=== PATIENT | female | born 2005 | race Caucasian/White ===

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

== ENCOUNTER 2025-06-25 18:16 | Emergency (ER) | payer OTHER, SELFPAY ==
[2025-06-25 18:27] VITALS: BP 138/87; PULSE 90; RESP 18; TEMP 36.8; O2SAT 100
--- NOTE | 2025-06-25 18:42 | ED_ITS ---
HPI - URI/Sore Throat General Chief Complaint: Upper Respiratory Infection Stated Complaint: SINUS/CHEST CONGESTION/COUGH Time Seen by Provider: 06/25/25 18:42 Source: patient Mode of arrival: ambulatory Limitations: no limitations History of Present Illness HPI Narrative: 20-year-old female complains with complaint of sinus congestion, pressure, pain for 3 weeks. Did a telehealth visit 6 days ago. Has taken 6 days of amoxicillin without relief of symptoms. Reports increase in postnasal drainage, green drainage from nose, right ear pain. Dry cough. No chest pain or shortness of breath. Afebrile. All systems reviewed and negative except as noted above. Related Data Home Medications ?Medication ?Instructions ?Recorded ?Confirmed ?Last Taken ?Type amoxicillin 875 mg tablet mg 06/25/25 Unknown History benzonatate 100 mg capsule mg PO 06/25/25 Unknown History sertraline 25 mg tablet mg 06/25/25 Unknown History Allergies Allergy/AdvReac Type Severity Reaction Status Date / Time No Known Allergies Allergy Verified 06/25/25 18:32 [facility] Surgical History Surgical History (Updated 10/01/23 @ 19:52 by Yamile Jaffe NP) History of tonsillectomy and adenoidectomy Social History Social History (Updated 10/01/23 @ 19:52 by Yamile Jaffe NP) Smoking status: Never smoker Alcohol intake: never Substance use: never Living arrangements: with family Gender identity (if verbalized by the patient): Female Comments At time of signature, agree with nursing past medical, surgical, social and family history. There is no relevant family history pertinent to the presenting complaint. Exam Narrative: GENERAL: This is a well-nourished, well-developed patient, in no apparent distress. HEAD: normocephalic, atraumatic. EYES: PERRL. Sclera clear/white. Vision is grossly intact. EARS: External ears normal, auditory canals clear and without drainage, fluid to right TM slightly bulging without erythema. Left TM is normal. No perforation bilaterally. Hearing grossly intact. NOSE: External nose normal with purulent nasal drainage, erythema and swelling to bilateral nares THROAT: Mucous membranes moist, erythema with postnasal drainage NECK: Neck supple, non-tender without lymphadenopathy, masses or thyromegaly. CARDIOVASCULAR: Regular rate and rhythm without murmurs, gallops, or rubs. RESPIRATORY: Clear to auscultation. Breath sounds equal bilaterally. No wheezes, rales, or rhonchi. SKIN: warm, Dry, intact with no suspicious lesions or rash, good texture and turgor. NEURO: awake, alert, and oriented to person, place and time. There were no obvious focal neurologic abnormalities. EXTREMITIES: No joint tenderness, effusion, or edema noted. Course Course Level of Care: Express Care Visit Vital Signs Vital signs: Vital Signs Temperature 36.8 C 06/25/25 18: Pulse Rate 90 06/25/25 18:27 Respiratory Rate 18 06/25/25 18: Blood Pressure 138/87 06/25/25 18: Pulse Oximetry 100 06/25/25 18: Temperature 36.8 C 06/25/25 18: Pulse Rate 90 06/25/25 18:27 Respiratory Rate 18 06/25/25 18:27 Blood Pressure 138/87 06/25/25 18:27 Pulse Oximetry 100 06/25/25 18:27 Reviewed MDM - URI/Sore Throat MDM Narrative Medical decision making narrative: Will stop amoxicillin. Changing patient's antibiotic to doxycycline. Patient is well-appearing, nontoxic. Lungs clear to auscultation. Patient agrees with plan of care. Differential Diagnosis Differential diagnosis: Likely upper respiratory infection, otitis media, sinusitis, influenza and pharyngitis Discharge Plan Discharge Clinical Impression: Acute bacterial sinusitis Patient Disposition: Home Condition: Stable Instructions: Antibiotic Form, Sinusitis (ED) Additional Instructions: Take medications as prescribed. Stop amoxicillin. Drink at least 64 oz of water a day. See your doctor if symptoms are not improving. Patient Language: Serbian Prescriptions: New doxycycline hyclate 100 mg capsule 100 mg PO BID 7 Days Qty: 14 0RF methylprednisolone [Medrol (Andi)] 4 mg tablets,dose pack See Rx Instructions PO .COMPLEX Qty: 21 0RF Rx Instructions: orally per package directions cetirizine-pseudoephedrine [Zyrtec-D] 5-120 mg tablet extended release 12 hr 1 tablet PO BID PRN (Reason: sinus symptoms) Qty: 20 0RF No Action albuterol sulfate 90 mcg/actuation HFA aerosol inhaler 2 puff inhalation QID PRN (Reason: shortness of breath or wheezing) Qty: 8.5 0RF Rx Instructions: for cough and chest tightness with cough amoxicillin 875 mg tablet benzonatate 100 mg capsule PO sertraline 25 mg tablet Follow-up/Referrals: Issac,MD Tulio [Primary Care Provider] - Time of Disposition: 18:48
== END 2025-06-25 18:50 | disposition home or self-care (01) ==
PROVIDERS: Emergency Provider Nurse Practitioner Family; PCP Internal Medicine
DX: J01.90 Acute sinusitis, unspecified (principal)
CPT/HCPCS: 99213; G0463